=== PATIENT | male | born 1940 | race Caucasian/White ===

== ENCOUNTER 2016-06-09 00:21 | Day surgery (SDC) | payer OTHER ==
[~2016-06-09] VITALS: Ht 182.9 cm; Wt 92.7 kg
[~2016-06-09 00:21] MED LIST: ATOR20TA PO; METO50TA3 PO; WARF5TAB7 PO
[2016-06-09] MEDS ORDERED: Propofol 10,000 mCg/mL 20 mL Inj ONE (00:22)
[2016-06-09] MEDS ORDERED: Lactated Ringer's 1,000 ML IV ONE (05:00)
[2016-06-09 15:10] LABS: BASOPHILS % (AUTO) 0.2 % (0-3); EOSINOPHILS % (AUTO) 2.1 % (0-5); MONOCYTES % (AUTO) 7.9 % (4-12); Mean Corpuscular Hemoglobin 31.1 pg (27.0-35.0); Mean Corpuscular Volume 94.4 fL (81-100); NEUTROPHILS % (AUTO) 58.8 % (40-74); Platelet Count 186 bil/L (150-400)
[2016-06-09 15:11] VITALS: BP 143/108; PULSE 121; RESP 16; O2SAT 99
[2016-06-09 15:28] LABS: INR 2.51 ratio
[2016-06-09] MEDS ORDERED: fentaNYL-PF 50 mCg/mL 2 mL Inj ONE (15:38)
[2016-06-09] MEDS ORDERED: Atropine 1 mg/10 mL (Code) Syringe ONE (15:38)
--- NOTE | 2016-06-09 15:39 | PCM.HPANE ---
Patient Data Surgeon Admitting Provider: Attending Provider:Kevyn Galvan MD Primary Care Physician:Jasmin Garvin MD Other Provider:[facility] Reason for Visit Atrial Flutter Ht/WT & BMI Height (Feet): 6 Weight (Kilograms): 92.700 Body Mass Index 27.68 Allergies Coded Allergies: No Known Allergies (Verified , 01/15/16) Past Anesthesia History Anesthesia History: Denies:: Anesthesia Reactions Diabetes History Hx Diabetes?: No MRSA MRSA: No Medications Reported Medications Warfarin Sodium 5 Mg Tablet7.5 Mg PO DAILY 30 Days Ref 0 7.5mg alternate with 10mg 06/05/16 Metoprolol Tartrate 50 Mg [id number] Mg PO BIDWM 30 Days Ref 0 06/05/16 Atorvastatin (Lipitor)20 Mg [id number] Mg PO DAILY Ref 0 01/14/16 Discontinued Reported Medications Aspirin 325 Mg [id number] Mg PO DAILY #1 BOTTLE 01/14/16 History History of ENT Problems?: No HEENT History: Positive for:: Sinus Problem (HAD SURGERY. USES NASONEX) Denies:: Cataracts Dysphagia Hx of Heart Problems?: Yes Cardiovascular History: Positive for:: Cardiac Surgery (5 stents, MVR) Hypertension Irregular Heartbeat (Atrial Fibrillation) Denies:: Chest Pain Congestive Heart Failure Edema Heart Murmur Pacemaker Thrombophlebitis Hx of Respiratory Problem?: No Respiratory History: Positive for:: Asthma Dyspnea Denies:: COPD Chest Surgery Emphysema Hemoptysis Pneumonia Tuberculosis Hx Neurologic Problems?: No Neurological History: Denies:: Alzheimer's Disease CVA Dementia Dizziness Headaches Parkinson's Disease Seizures Hx of GI Problems?: No Gastrointestinal History: Positive for:: Rectal Bleeding (HAD IT FIXED) Denies:: Diverticulitis Gastrointestinal Bleeding Heartburn Hepatitis Hiatal Hernia Genitourinary History: Denies:: Kidney Stones Urinary Tract Infection Male Hx: Denies:: Prostate Problems Scrotal Mass Testicular Surgery Musculoskeletal History: Denies:: Back Injury Joint Replacement Musculoskeletal Trauma Hx of Psycho/Social Problems?: No Hx Surgeries?: Yes (sinus surgery) Hx Any Other Health Problems?: No Other History: Positive for:: Cancer (Basal cell ) Hospitalization Denies:: Thyroid Disease History Blood Transfusions: Positive for:: Accept Blood Products? Blood Transfuse Reaction Denies:: Blood Transfusions Hx Diabetes: No Hx Alcohol Use: NoHx Substance Use: No Smoking Status: Former Smoker Have You Smoked inLast 12 mo: No Stop/Bang Risk Assessment Category Category 1A: Patient has history of documented sleep apnea, and HAS NOT received any narcotic, sedative or anesthesia administration during this stay. Category 1B: Patient has history of documented sleep apnea, and HAS received any narcotic , sedative or anesthesia administration during this stay Category 2: Patient has SUSPECTED Obstructive Sleep Apnea, and HAS received any narcotic , sedative or anesthesia administration during this stay. Category 3: Patient has SUSPECTED Obstructive Sleep Apnea and HAS NOT received narcotic, sedative or anesthesia administration during this stay. Category 4: Outpatient in Procedural Areas with known sleep apnea or who screen positive for High Risk via the STOP/BANG questionnaire. Exam Exam Vital Signs Vital Signs Date Time Temp Pulse Resp B/P Pulse Ox O2 Delivery O2 Flow Rate FiO2 06/09/16 15:11 36.4 121 16 143/108 99 Room Air General Appearance: Alert, Oriented X3, Cooperative HEENT/AIRWAY: MP 2, Neck Movement (from), Mouth Opening (wnl) Lungs: Clear to Auscultation Heart: Exam Unremarkable (A-Flutter, SEVERE ) Meds/Labs/Diagnostics Labs Test 06/09/16 15:00 White Blood Count 8.7th/mm3 (3.8-10.1) Red Blood Count 4.86mil/mm3 (4.40-5.80) Hemoglobin 15.1g/dL (13.8-17.2) Hematocrit 45.9% (41.0-50.0) Mean Corpuscular Volume 94.4fL (81-100) Mean Corpuscular Hemoglobin 31.1pg (27.0-35.0) Mean Corpuscular Hemoglobin Concent 32.9% (32.0-37.0) Red Cell Distribution Width 13.0% (12.3-15.4) Platelet Count 186bil/L (150-400) Neutrophils (%) (Auto) 58.8% (40-74) Lymphocytes (%) (Auto) 30.8% (14-46) Monocytes (%) (Auto) 7.9% (4-12) Eosinophils (%) (Auto) 2.1% (0-5) Basophils (%) (Auto) 0.2% (0-3) Prothrombin Time 27.4sec (8.1-12.5) Prothromb Time International Ratio 2.51ratio Sodium Level 142mEq/L (134-144) Potassium Level 4.3mEq/L (3.5-5.2) Chloride Level 105mEq/L (97-108) Carbon Dioxide Level 25mmol/L (18-29) Blood Urea Nitrogen 21mg/dL (8-27) Creatinine 1.05mg/dL (0.76-1.27) Estimat Glomerular Filtration Rate 73mL/min (>59) Glucose Level 84mg/dL (60-99) Calcium Level 9.3mg/dL (8.5-10.1) Plan Impression Patient chart reviewed, patient interviewed and anesthestic plan with risks, benefits, and alternatives discussed, and informed consent obtained. ASA Physical Status: ASA3 Severe Disease Anesthetic Plan: GA Bene/Risks/Altern/Consents: Yes HP Complete Prior to Induction: Yes Salbador Aguiar MD Jun 09, 2016 15:39
[2016-06-09 16:15] VITALS: BP 103/74; PULSE 84; RESP 16; O2SAT 98
--- NOTE | 2016-06-09 16:27 | PCM.ANEP1 ---
Post Anesthesia Phase 1 PACU Phase 1 Assessment Vital Signs Vital Signs Date Time Temp Pulse Resp B/P Pulse Ox O2 Delivery O2 Flow Rate FiO2 06/09/16 16:15 84 16 103/74 98 Room Air 06/09/16 15:11 36.4 121 16 143/108 99 Room Air Anesthetic Administered: GA Level of Alertness: Awake, talking ROJAS's with Equal Strength: Yes Pain: No Nausea or Vomiting: No Oxygen Delivery: Nasal Cannula Lungs: Normal Air Movement Salbador Aguiar MD Jun 09, 2016 16:27
--- NOTE | 2016-06-09 16:29 | PCM.ANEP2 ---
Post Anesthesia Evaluation ASA/CMS Post Anesthesia VS in Patient's Normal Range?: Yes Resp Stable; Airway Patent?: Yes CV Function & Hydration Stable: Yes Mental Status Recovered?: Yes Pain control Satisfactory?: Yes N/V Control Satisfactory?: Yes Salbador Aguiar MD Jun 09, 2016 16:29
[2016-06-09 16:30] VITALS: BP 107/77; PULSE 82; RESP 16; O2SAT 98
[2016-06-09 16:43] VITALS: BP 106/80; PULSE 78; RESP 16; O2SAT 98
--- NOTE | 2016-06-09 16:50 | NUR ---
Pt discharged to home, ambulatory, accompanied by spouse. Pt's VSS, in NSR at time of d/c, IV discontinued. Pt given all discharge instructions and follow up appt, had no further questions at time of d/c.
--- NOTE | 2016-06-09 17:47 | PROG NOTE ---
[address] [address] PROGRESS NOTE PATIENT: ESPERANZA GALINDO : 1940 MR#: [id number] ADMIT: 06/09/2016 JOB ID: [id number] DATE: 06/09/2016 The patient presented to the hospital today with approximately two weeks of persistent atrial flutter associated with exertional fatigue and dyspnea. He has been therapeutically anticoagulated for approximately a week and a half to two weeks and is scheduled for an elective transesophageal echocardiogram and, if no thrombus is visible, cardioversion. The patient underwent a transesophageal echocardiogram. Initially, there was some challenge getting the probe past the upper esophageal sphincter. After 2 mg of Versed, I asked Anesthesiology to assist and with 100 mg of fentanyl the patient was quite sedated and the transesophageal probe easily positioned across the sphincter and into the body of the esophagus. The SONIA demonstrated absence of any left atrial appendage, clot or left atrial thrombus. Blood flow was brisk in and out of the left atrial appendage with his flutter. His new bioprosthetic aortic valve was well seen and positioned well. At approximately 2 o'clock on the aortic annulus, there was a small focal annular dehiscence and a small jet of eccentric aortic insufficiency seen perivalvular. Otherwise, his bioprosthetic aortic valve looked normal. The transesophageal echo probe was then removed and the patient prepped for the cardioversion procedure. Anesthesiology then gave him deep sedation with propofol and once he was adequately sedated, he was cardioverted using 150 joule biphasic shock delivered through anterior and posterior patches synchronized with the R-wave, promptly converting him to normal sinus rhythm. The patient awoke without difficulty or complications. He has remained in normal sinus rhythm with a rate of 84 beats per minute with a good blood pressure and good oximetry. His came back to the room. I instructed them to reduce metoprolol to 50 mg b.i.d. and follow up with myself in the office as scheduled on the of this month. I will probably want to keep him on Coumadin anticoagulation for three or four months to make sure that he is not going to have recurrent dysrhythmias and then we can discontinue that if he remains free of any recurrent atrial dysrhythmias.
--- NOTE | 2016-06-09 18:12 | DRSVH ---
[facility] [address] [place] [address] Echocardiogram Report Name: ESPERANZA GALINDO NStudy Date: 06/09/2016 Height: 70 in Hospital Exam Location: [facility] Weight: 175 lb Gender: Male BSA: 2.0 m2 : 1940 Age: 76 yrs Reason For Study: A-FLUTTER Ordering Physician: Kevyn Galvan Performed By: Ofelia Ferguson Referring Physician: Dr. Jasmin Garvin Interpretation Summary The left atrium is mildly dilated. No left atrial mass or thrombus visualized. No thrombus is detected in the left atrial appendage. There is a bioprosthetic aortic valve. There is a small area of dehisence at the anterior aortic ring with a small jet of perivalvular AI noted. Otherwise the aortic bioprosthesis looks normal. No other echocardiographic abnormalities seen. Procedure: The patient was brought to the [facility] in a fasting state. Informed consent for Transesophageal Echocardiogram, and use of a contrast agent as needed, was obtained prior to the procedure. Sedation was managed by anesthesiologist; see anesthesiology notes for details. The patient's vital signs, including blood pressure, heart rate, pulse oximetry and cardiac rhythm were monitored throughout the procedure and remained stable. A 2D transesophageal echocardiogram with spectral and color flow Doppler was performed. The patient tolerated the procedure well without evidence of orophangeal or esophageal trauma. The patient was in atrial fibrillation with rapid ventricular response during the exam with a heart rate exceeding 100 bpm. There were no complications. Left Ventricle: The left ventricle is not well visualized. Right Ventricle: The right ventricle is not well visualized. Atria: The left atrium is mildly dilated. No left atrial mass or thrombus visualized. No thrombus is detected in the left atrial appendage. Mitral Valve: There is mild mitral regurgitation. Aortic Valve: There is a bioprosthetic aortic valve. There is a small area of dehisence at the anterior aortic ring with a small jet of perivalvular AI noted. Otherwise the aortic bioprosthesis looks normal. There is trace aortic regurgitation. Reading Physician:06:11 PM
== END 2016-06-09 23:59 | disposition home or self-care (01) ==
LOC: SOUO 00:21
PROVIDERS: ATTEND Internal Medicine Cardiovascular Disease
DX: I48.92 Unspecified atrial flutter (principal); Z79.02 Long term (current) use of antithrombotics/antiplatelets; Z95.3 Presence of xenogenic heart valve; I25.10 Atherosclerotic heart disease of native coronary artery without angina pectoris; I25.2 Old myocardial infarction; Z95.4 Presence of other heart-valve replacement; I10 Essential (primary) hypertension; E78.5 Hyperlipidemia, unspecified; Z87.891 Personal history of nicotine dependence
CPT/HCPCS: 36415; 80048; 85025; 85610; 92960; 93005; C8925; J2250; J7120